=== PATIENT | male | born 1960 ===

== ENCOUNTER 2021-03-01 02:03 | Day surgery (SDC) | payer OTHER, SELFPAY ==
[2021-03-01] VITALS (17 sets, daily range): BP systolic 123–181; BP diastolic 62–85; PULSE 78–91; RESP 16–20; TEMP 36.6–37.4; O2SAT 93–97; BMI 32.8
--- NOTE | ~2021-03-01 | XR_ITS ---
XR chest 2V 03/02/2021 09:05 Indication: 24 hours following pacemaker insertion Procedure: PA and lateral views of the chest Comparison: 03/01/2021 Findings: Right-sided transvenous pacemaker leads in the right atrium and right ventricle respectivel y. Heart size normal. There is left suprahilar atelectasis/scarring. No focal pneumonia, edema, pleur al effusion or pneumothorax. Heart size is normal. No acute osseous abnormality. Impression: 1: Left suprahilar atelectasis/scarring. Reviewed, dictated and finalized at location A. DINGS AND GROUNDS SUPERVISOR Impression: 1: Left suprahilar atelectasis/scarring.
--- NOTE | ~2021-03-01 | XR_ITS ---
XR chest 1V portable DATE: 03/01/2021 14:45 INDICATION: Pacemaker insertion TECHNIQUE: Portable upright AP chest on 03/01/2021 at 1441 hours COMPARISON: None FINDINGS: Right-sided transvenous pacemaker device is noted with leads overlying right atrium and rig ht ventricle. Heart size appears borderline, not optimally evaluated on AP projection because of magnification. The re is pulmonary vascular congestion and redistribution and mild prominence of minor fissure suggestin g subpleural edema. No pleural effusion or pneumothorax is evident. IMPRESSION: Right sided transvenous pacemaker device with right atrial and ventricular leads Mild congestive changes Reviewed, dictated and finalized at location B. AIN CLEANER IMPRESSION: Right sided transvenous pacemaker device with right atrial and vent ricular leads Mild congestive changes
--- NOTE | 2021-03-01 07:00 | ECG_ITS ---
Measurements Intervals [place] Rate: 75 P: 269 OK: 269 QRS: 45 QRSD: 114 T: 50 QT: 379 QTc: 425 Interpretive Statements ECTOPIC ATRIAL RHYTHM WITH FIRST DEGREE AV BLOCK BORDERLINE ST-T WAVE ABNORMALITY- INFERIOR LEADS BASELINE ARTIFACT- I, II, III, AVR, AVL, AVF ABNORMAL ECG Electronically Signed On 03-01-2021 7:50:08 [employer]BL[employer] by Min Henson D.O.
[2021-03-01 07:48] LABS: Anion Gap 12 mmol/L (8-16); Blood Urea Nitrogen 24 mg/dL (9-20); Calcium 10.1 mg/dL (8.4-10.2); Carbon Dioxide 28 mmol/L (22-30); Chloride 101 mmol/L (98-107); Estimated Glomerular Filt Rate > 60; Glucose 198 mg/dL (65-110); Potassium 3.9 mmol/L (3.4-5.0); Sodium 141 mmol/L (137-145)
[2021-03-01 08:07] LABS: Basophils Absolute Auto 0.1 K/mm3 (0.0-0.1); Eosinophils Absolute Auto 0.2 K/mm3 (0-0.3); Eosinophils Percent Auto 2.4 % (0-4.4); Hematocrit 41.5 % (42.0-52.0); Hemoglobin 14.2 g/dL (14.0-18.0); Immature Granulocyte Absolute 0.02 K/mm3 (0.00-0.031); Immature Granulocyte Percent A 0.3 % (0-0.5); Lymphocytes Absolute Auto 1.95 K/mm3 (0.9-3.2); Lymphocytes Percent Auto 24.5 % (18.3-44.2); Mean Corpuscular HGB Conc 34.2 g/dl (32-36); Mean Corpuscular Hemoglobin 30.4 pg (26-34); Mean Corpuscular Volume 88.9 fl (80-100); Mean Platelet Volume 10.9 fl (7.4-10.4); Monocytes Absolute Auto 0.7 K/mm3 (0.1-0.6); Monocytes Percent Auto 8.9 % (2.6-8.5); Neutrophils Percent Auto 62.9 % (45.5-73.1); Platelet Count Result 184 k/mm3 (150-375); Red Blood Count 4.67 M/mm3 (4.6-6.20); Red Cell Distribution Width 12.6 % (11.5-14.5)
[2021-03-01 08:25] LABS: INR 1.2; Prothrombin Time 14.7 Seconds (11.1-14.7)
--- NOTE | 2021-03-01 08:32 | SUR.PREOP ---
DR. WELDON HERE TO BEDSIDE TO SPEAK TO PT. AND DAUGHTER.
--- NOTE | 2021-03-01 08:35 | SUR.PREOP ---
DR. WELDON GIVEN LAB RESULTS AND MADE AWARE THAT PT'S LAST DOSE OF PLAVIX WAS 2020.
--- NOTE | 2021-03-01 08:39 | PM.IMHP ---
H&P: HPI History of Present Illness Date/Time: 03/01/21 08:39 Chief Complaint: Intermittent second-degree AV block, symptomatic, sinus pauses Narrative: Talon Hall is a 60-year-old male with exertional fatigue with intermittent dizziness. His monitoring showed intermittent second-degree AV block type 1 and type 2, and sinus pauses. He also has intermittent tachycardia as, suspected PAF (not documented). He has a history of hypertension, coronary artery calcification, atypical chest pain, and diabetes. He takes aspirin and Plavix for history of stroke, last dose of Plavix was Saturday. He is left handed. No history of any clavicular fracture. No allergies to antibiotics or IV contrast. Accompanied by his daughter Destini today. Review of Systems Review of Systems: Last dose of Plavix was Saturday night Constitutional: Constitutional: Reports fatigue and Reports weakness Eyes: Eyes: Reports no additional eye complaints ENT: Denies epistaxis Cardiovascular: Cardiovascular: Reports chest pain, Reports pedal edema, Reports leg edema, Reports lightheadedness and Reports palpitations Respiratory: Respiratory: Reports dyspnea on exertion Gastrointestinal: Gastrointestinal: Denies abdominal pain Genitourinary: Genitourinary: Denies hematuria Musculoskeletal: Musculoskeletal: Reports no additional musculoskeletal complaints Integumentary/Breasts: Skin/Breast: Denies rash Neurologic: Reports system reviewed and no additional complaints, except as documented Comments: History of stroke Psychiatric: Psychiatric: Reports no additional psychiatric complaints [facility] Past Medical History Medical History (Updated 03/01/21 @ 08:46 by Germaine Chan MD) Coronary artery calcification Diabetes Diabetic neuropathy GERD (gastroesophageal reflux disease) History of stroke Hyperlipidemia Hypertension Nerve entrapment Status post surgery Family History Family History (Updated 03/01/21 @ 08:48 by Germaine Chan MD) Mother Heart disease Father Kidney failure Social History Social History (Updated 03/01/21 @ 08:49 by Germaine Chan MD) Social History: Daughter Roxanne Smoking status: Never smoker Meds Home Medications and Allergies Home Medications Medication Instructions Recorded Confirmed Type aspirin 81 mg PO DAILY 03/01/21 03/01/21 History atorvastatin 20 mg PO DAILY 03/01/21 03/01/21 History clonidine HCl 0.2 mg PO BID 03/01/21 03/01/21 History clopidogrel 75 mg PO DAILY 03/01/21 03/01/21 History folic acid 1 mg PO DAILY 03/01/21 03/01/21 History fosinopril 20 mg PO DAILY 03/01/21 03/01/21 History furosemide 40 mg PO DAILY 03/01/21 03/01/21 History insulin detemir U-100 [Levemir 40 unit SUBCUT ACHS 03/01/21 03/01/21 History FlexTouch U-100 Insuln] lactulose 20 g PO QID 03/01/21 03/01/21 History meloxicam 15 mg PO DAILY 03/01/21 03/01/21 History nifedipine 60 mg PO DAILY 03/01/21 03/01/21 History potassium chloride 20 meq PO DAILY 03/01/21 03/01/21 History pregabalin 150 mg PO BID 03/01/21 03/01/21 History quetiapine 25 mg PO TID 03/01/21 03/01/21 History quetiapine 600 mg PO HS 03/01/21 03/01/21 History Allergies Allergy/AdvReac Type Severity Reaction Status Date / Time amlodipine [From [facility]] AdvReac Chest Pain Verified 03/01/21 07:47 Vital Signs Vital Signs - 24 hr 03/01/21 08:02 Temperature 97.9 F Pulse Rate 78 Respiratory Rate 18 Blood Pressure 151/77 H Pulse Oximetry 97 Exam Narrative: Middle-aged male, accompanied by daughter, apprehensive, no distress Const: General: comfortable and no acute distress HENMT: General nose exam: no epistaxis Other: Missing several teeth Eyes: EOM: EOMs intact bilaterally Neck: Neck: supple Resp: Effort & Inspection: normal respiratory effort Auscultation: clear to auscultation bilaterally Cardio: Rate: regular rate Rhythm: regular rhythm Heart sounds: no murmurs GI: GI Palp: Yes Soft to palpation and No Te
--- NOTE | 2021-03-01 08:51 | WPDMODSED ---
Moderate Sedation Note-Pt Data Patient Data Diagnosis: Symptomatic second-degree AV block type 2 Present Complaint: Reviewed risks of pacemaker implant with patient. These include breathing problems, allergic reactions, bleeding, infection, pneumothorax, cardiac puncture, need for unanticipated surgery, lead dislodgement among others. Procedure to be performed/Plan: Conscious sedation Venogram Insertion of a permanent dual-chamber pacemaker Allergies Allergy/AdvReac Type Severity Reaction Status Date / Time amlodipine [From [facility]] AdvReac Chest Pain Verified 03/01/21 07:47 Home Medications Medication Instructions Recorded Confirmed Type aspirin 81 mg PO DAILY 03/01/21 03/01/21 History atorvastatin 20 mg PO DAILY 03/01/21 03/01/21 History clonidine HCl 0.2 mg PO BID 03/01/21 03/01/21 History clopidogrel 75 mg PO DAILY 03/01/21 03/01/21 History folic acid 1 mg PO DAILY 03/01/21 03/01/21 History fosinopril 20 mg PO DAILY 03/01/21 03/01/21 History furosemide 40 mg PO DAILY 03/01/21 03/01/21 History insulin detemir U-100 [Levemir 40 unit SUBCUT ACHS 03/01/21 03/01/21 History FlexTouch U-100 Insuln] lactulose 20 g PO QID 03/01/21 03/01/21 History meloxicam 15 mg PO DAILY 03/01/21 03/01/21 History nifedipine 60 mg PO DAILY 03/01/21 03/01/21 History potassium chloride 20 meq PO DAILY 03/01/21 03/01/21 History pregabalin 150 mg PO BID 03/01/21 03/01/21 History quetiapine 25 mg PO TID 03/01/21 03/01/21 History quetiapine 600 mg PO HS 03/01/21 03/01/21 History Sedation/Anesthesia: No previous sedation/anesthesia problems (including family history). [facility] Past Medical History Medical History (Updated 03/01/21 @ 08:46 by Germaine Chan MD) Coronary artery calcification Diabetes Diabetic neuropathy GERD (gastroesophageal reflux disease) History of stroke Hyperlipidemia Hypertension Nerve entrapment Status post surgery Family History Family History (Updated 03/01/21 @ 08:48 by Germaine Chan MD) Mother Heart disease Father Kidney failure Social History Social History (Updated 03/01/21 @ 08:49 by Germaine Chan MD) Social History: Daughter Roxanne Smoking status: Never smoker Mod Sed Physical Exam Physical Exam Pre Procedural Exam: Normal: Appearance, Eyes, Ears, Nose, Neck, Airway, Lungs, Heart Size, Heart Rate, Heart Rhythm, Neuro Exam, Abdomen and Skin (Skin over prepectoral area is free of lesion) and Variation: Throat (Missing several teeth) Hours since solid foods: 12 Hours since liquid intake: 12 Mallampati Classification: class III Internal Medicine - PN: Obj Da Vital Signs Vital Signs: Vital Signs - 24 hr 03/01/21 08:02 Temperature 97.9 F Pulse Rate 78 Respiratory Rate 18 Blood Pressure 151/77 H Pulse Oximetry 97 Labs CBC & Chem 7: 03/01/21 07:23 03/01/21 07:23 Labs: Laboratory Results - last 24 hr 03/01/21 03/01/21 03/01/21 07:23 07:23 07:23 WBC 8.0 RBC 4.67 Hgb 14.2 Hct 41.5 L MCV 88.9 MCH 30.4 MCHC 34.2 RDW 12.6 Plt Count 184 MPV 10.9 H Immature Gran % (Auto) 0.3 Neut % (Auto) 62.9 Lymph % (Auto) 24.5 Mccracken % (Auto) 8.9 H Eos % (Auto) 2.4 Baso % (Auto) 1.0 Lymph # (Auto) 1.95 Mccracken # (Auto) 0.7 H Eos # (Auto) 0.2 Baso # (Auto) 0.1 Abs Immat Gran (auto) 0.02 Absolute Neuts (auto) 5.0 Absolute Nucleated RBC 0.0 Nucleated RBC % 0.0 PT 14.7 INR 1.2 Sodium 141 Potassium 3.9 Chloride 101 Carbon Dioxide 28 Anion Gap 12 BUN 24 H Creatinine 0.90 Estim Creat Clear Calc Not Reportable Estimated GFR > 60 Glucose 198 H Calcium 10.1 ASA Classification/Sedation ASA Classification/Sedation ASA Class: III Emergent: No Risks: Risks, benefits and alternatives explained and patient/family accepted plan for sedation. Patient re-evaluated immediately prior to sedation.
--- NOTE | 2021-03-01 13:45 | ECG_ITS ---
Measurements Intervals [place] Rate: 85 P: 71 MO: 159 QRS: -84 QRSD: 183 T: 79 QT: 441 QTc: 526 Interpretive Statements ELECTRONIC VENTRICULAR PACEMAKER NO FURTHER INTERPRETATION IS POSSIBLE ATYPICAL ECG Electronically Signed On 03-01-2021 14:46:11 SPORTS UMPIRE by Min Henson D.O.
--- NOTE | 2021-03-01 13:49 | PM.OP ---
Procedure Note - Brief Procedure Note - Brief Date of procedure: 03/01/21 Pre-op diagnosis: heart Block Post-op diagnosis: same Procedure performed: Conscious sedation new line venogram Placement of a permanent dual-chamber pacemaker Description of procedure: placement of a permanent dual-chamber pacemaker Anesthesia: local ( with conscious sedation) Surgeon: Germaine Chan MD Complications: No immediate complications Condition: stable Disposition: observation Findings: patient had excessive oozing and bleeding from the pocket and sheath sites requiring application of topical thrombin, sutures, extensive cautery, and a pressure dressing.
--- NOTE | 2021-03-01 13:50 | W.PM.PROC2 ---
Procedure Note - Detailed Date of Procedure 03/01/21 Pre-op Diagnosis Symptomatic second-degree AV heart Block Post-op Diagnosis same Procedure Performed PROCEDURE PERFORMED: Conscious sedation Venogram Placement of a permanent dual-chamber pacemaker Surgeon Germaine Chan MD Anesthesia local (With conscious sedation) Indications Symptomatic second-degree AV block Findings Unusual and extensive generalized oozing noted Description of Procedure HISTORY: Talon Hall is a 60-year-old male with exertional fatigue with intermittent dizziness. His monitoring showed intermittent second-degree AV block type 1 and type 2, and sinus pauses. He also has intermittent tachycardia as, suspected PAF (not documented). He has a history of hypertension, coronary artery calcification, atypical chest pain, and diabetes. He takes aspirin and Plavix for history of stroke, last dose of Plavix was Saturday. He is left handed. No history of any clavicular fracture. No allergies to antibiotics or IV contrast. SITE: Left prepectoral area MEDICATIONS GIVEN IN PHOTOGRAPHS CURATOR: Ancef 1 gram IV piggyback Hydralazine 10 mg IV push x2 for hypertension. CONSCIOUS SEDATION: Assessment: The patient has no history of anesthesia problems. The patient's oropharynx is clear. The patient was deemed to be a good candidate for conscious sedation. The patient had continuous hemodynamic monitoring during the procedure. Start time: 0920 Completion time: 1326 Total conscious sedation time: 4 hours 6 minutes Medications: fentanyl 300 mcg, Versed 7 mg IV push Trained observer: Lucy Lockett RN Outcome: The patient tolerated the procedure well with no complications. PROCEDURE: After informed consent , the patient was brought to the farm labor contractor and the left prepectoral area was prepped and draped in usual fashion . The patient received preop antibiotic and conscious sedation . The right prepectoral area was anesthetized with lidocaine. A venogram was performed showing the course of the right subclavian vein, which was patent, though at a sharp bend into the innominant vein. Next a skin incision was made and carried down to the prepectoral fascia. The pacer pocket was formed. Hemostasis was obtained using electrocautery; the patient was noted to ooze more than usual from the incision and pocket. The left subclavian vein was not easily accessed with the micropuncture technique. After a few passes, I elected to attempt venous puncture with the assistance of the vascular ultrasound. The left subclavian/axillary vein was located which was lateral to the incision, and small. IV fluids were provided to increase the size of the vein, which was punctured with the Cook needle and a J-tip guide wire was passed into the right heart under fluoroscopic guidance . The needle was withdrawn . The wire was pulled into the pacing pocket, with again significant oozing from this manipulation. I was unable to puncture the vein is 2nd time with this technique. Using the retained wire technique, A 7 Bahamian Bahamian safety sheath was passed over the wire, and a 2nd wire was passed to the right heart. Using a 6 Bahamian sheath, I was able to manipulate the right ventricular lead into the right ventricular apex. When suitable sensing and pacing thresholds were obtained, it was screwed into place. No extra cardiac stimulation was obtained using 10 volts. The sheath was withdrawn. Next, another 6 Bahamian safety sheath was passed over the 2nd wire, the wire withdrawn, and the right atrial lead was passed into the inferior vena cava under fluoroscopic guidance. Right atrial lead was then pulled back to the level of the right atrium and manipulated into the right atrial appendage . When suitable sensing and pacing thresholds were obtained , it was screwed into place . However the lead need to be repositioned twice. It was difficult to get good sensing in the appendage but we had good sensin
[2021-03-01 14:04] LABS: Hematocrit 36.1 % (42.0-52.0); Hemoglobin 12.5 g/dL (14.0-18.0)
[2021-03-01 14:21] LABS: Glucose Point of Care 212 mg/dl (65-105)
[2021-03-01] MEDS: OXYMETAZOLINE HCL 0.05% NAS 15 ML BTL (*BKC) 1 SPRAY NASAL (14:54)
--- NOTE | 2021-03-01 15:00 | SUR.PHASEII ---
END PHASE II RECOVERY. SEE PCS FOR FURTHER DOCUMENTATION.
--- NOTE | 2021-03-01 15:01 | ADMGEN ---
This patient, Talon Hall, was admitted EXTENDED RECOVERY AFTER OUTPATIENT PERMANENT PACEMAKER. REMAINS IN STRIPER SPRAY GUN 7 AT THIS TIME. WILL TRANFER to Medical Room 249-01 ON TELE WHEN AVAILABLE. Patient/family oriented to hospital policies and general routines including ID bracelet, bed and alarms, visiting hours, pain management, procedures, bathroom and other care routines, personal items, smoking policy, room service/diet, and visiting hours. PREVIOUS CHARTING IN HAYDE TRACKER PHASE II. Information on how to activate the Rapid Response Team has been discussed. Patient/Family are encouraged to report perceived risks to care and to ask questions if they do not understand what they are told or what they should do.
[2021-03-01] MEDS: HYDROcodone/acetaminophen (*CRX) 5-325 MG TABLET 1 TAB PO (15:34)
[2021-03-01] MEDS: FLUTICASONE PROPIONATE 0.05% NA SPR 16 GM BTL (*BKC) 2 SPRAY NASAL (18:13)
[2021-03-01] MEDS: LORATADINE 10 MG TABLET PO (18:14)
[2021-03-01] MEDS: LACTULOSE 20 GM/30 ML UDC PO (18:16)
[2021-03-01] MEDS: PREGABALIN (*CRX) 75 MG CAPSULE 150 MG PO (18:16)
[2021-03-01] MEDS: QUEtiapine FUMARATE 25 MG TABLET PO (18:16)
[2021-03-01] MEDS: cloNIDine HCL 0.2 MG TABLET PO (19:09)
[2021-03-01] MEDS: INSULIN DETEMIR 100 UNITS/ML 40 UNITS SUB-Q (19:52)
--- NOTE | 2021-03-01 20:05 | PC.NURSE ---
REPORT CALLED TO TIM RAMIREZ ON MED TELE.
--- NOTE | 2021-03-01 20:20 | PC.NURSE ---
TRANSFERRED PT. VIA BED ON TELE TO [address] [place] [address] FOR REMAINDER OF EXTENDED RECOVERY STAY AFTER OUTPATIENT PACEMAKER INSERTION. IMMOBILIZER REMAINS ON R. ARM. NO CHANGE IN R. UPPER CHEST WOUND SITE OR EDEMA. DRESSING REMAINS C/D/I. MOVED W/ ALL BELONGINGS, PHONE, PPM BEDSIDE MONITOR AND BOOKLETS. VOICES NO C/O. WILL NOTIFY DAUGHTER, GIAN, OF NEW ROOM NUMBER.
[2021-03-01] MEDS: QUEtiapine FUMARATE 100 MG TABLET 600 MG PO (21:10)
[2021-03-01] MEDS: traMADol HCL (*CRX) 50 MG TABLET 100 MG PO (21:10)
[2021-03-01 21:18] LABS: Glucose Point of Care 249 mg/dl (65-105)
[2021-03-02] VITALS (10 sets, daily range): BP systolic 80–156; BP diastolic 40–88; PULSE 60–94; RESP 18–20; TEMP 36.4–37.1; O2SAT 93–97
[2021-03-02 05:51] LABS: Hematocrit 35.1 % (42.0-52.0)
[2021-03-02 08:09] LABS: Glucose Point of Care 182 mg/dl (65-105)
[2021-03-02] MEDS: lisinopriL 20 MG TABLET PO (08:32)
[2021-03-02] MEDS: FUROSEMIDE 40 MG TABLET PO (08:32)
[2021-03-02] MEDS: LACTULOSE 20 GM/30 ML UDC PO (08:32)
[2021-03-02] MEDS: cloNIDine HCL 0.2 MG TABLET PO (08:32)
[2021-03-02] MEDS: LORATADINE 10 MG TABLET PO (08:32)
[2021-03-02] MEDS: FOLIC ACID 1 MG TABLET PO (08:32)
[2021-03-02] MEDS: FLUTICASONE PROPIONATE 0.05% NA SPR 16 GM BTL (*BKC) 2 SPRAY NASAL (08:32)
[2021-03-02] MEDS: ATORVASTATIN 20 MG TABLET PO (08:32)
[2021-03-02] MEDS: NIFEdipine 30 MG TAB.ER.24 60 MG PO (08:33)
[2021-03-02] MEDS: QUEtiapine FUMARATE 25 MG TABLET PO (08:33)
[2021-03-02] MEDS: POTASSIUM CHLORIDE 20 MEQ PACKET (FOR LIQUID) PO (08:33)
[2021-03-02] MEDS: PREGABALIN (*CRX) 75 MG CAPSULE 150 MG PO (08:33)
[2021-03-02] MEDS: LOSARTAN POTASSIUM 25 MG TABLET PO (08:33)
[2021-03-02] MEDS: INSULIN DETEMIR 100 UNITS/ML 40 UNITS SUB-Q (08:34)
[2021-03-02 10:36] LABS: Glucose Point of Care 219 mg/dl (65-105)
--- NOTE | 2021-03-02 10:44 | PC.NURSE ---
PT C/O WEAKNESS IN CHAIR PUT PT BACK TO BED AND BP 80/[address] WELDON NOTIFIED AND NEW ORDERS RECEIVED.
[2021-03-02 12:00] LABS: Glucose Point of Care 244 mg/dl (65-105)
--- NOTE | 2021-03-02 12:20 | PM.DS ---
DS: Admitting Diagnosis Discharge Date 03/02/2021 Admitting Diagnosis pacemaker insertion for secondary heart block. DS: Discharge Diagnosis Discharge Diagnosis (1) Second degree AV block: Code(s): I44.1 - Atrioventricular block, second degree Status: Acute Assessment and Plan: Patient underwent pacemaker insertion by Dr. Chan. There was significant amount of bleeding. Hemoglobin remained stable. Chest x-ray looked unremarkable. Interrogation of the device was within normal. Patient was not feeling dizzy or lightheaded. He was walking to the bathroom and he was steady on his feet. He tolerated diet. DS: Summary Hospital Course Hospital Course: Patient presented for elective insertion of pacemaker for second-degree heart block. He underwent the procedure successfully however there was significant mode to have bleeding during the procedure and difficulty achieving hemostasis however eventually hemostasis achieved. Today there was no hematoma. He is using a sling. Chest x-ray looked unremarkable. Interrogation of the device looks good. Patient is feeling well. Hemoglobin stable. Time Spent with Patient Time attestation: Total time spent providing and/or coordinating discharge services: 35 minutes Exam Const: General: cooperative, comfortable, no acute distress, alert and awake Nutritional Appearance: well nourished Orientation/consciousness: patient oriented x3 HENMT: Head: normal to inspection, normocephalic and atraumatic Ears: hearing grossly normal bilaterally General nose exam: Normal external nose present, Normal nares present and no nasal discharge noted Face and sinus: normal facial exam and no erythema Mouth: No drooling and No restricted motion Throat: uvula midline Eyes: General: appearance normal, both eyes and all related structures Alignment and Position: position normal Conjunctivae: conjunctivae normal Sclera: sclerae normal Direct Ophthalmoscopy: No photophobia Neck: Neck: normal visual inspection and no JVD Thyroid: thyroid normal Carotids: no bruits Lymphatic: lymphedema not noted Chest: Chest palpation & inspection: normal inspection of the chest, no tenderness and other ( Pacemaker site without hematoma. He is using a sling.) Resp: Effort & Inspection: normal respiratory effort and no nasal flaring Auscultation: clear to auscultation bilaterally, no crackles, no rales and no wheezes Cardio: Jugular venous distension: no JVD Rate: regular rate Rhythm: regular rhythm Heart sounds: S1 normal heart sound present, S2 normal heart sound present, no gallops, no murmurs and no rubs GI: Inspection: non-distended GI Palp: No abdominal tenderness and No Soft to palpation Auscultation: normal bowel sounds Rectal Exam: deferred : General: No no CVA tenderness Back/Spine/Pelvis: Back: No no CVA tenderness Cervical Spine: cervical ROM normal Skin: General skin exam: normal color and rashes and/or lesions noted Neuro: General: patient oriented x3 Cranial nerves: No CN's II-XII intact bilaterally Speech: normal speech Motor exam (neuro): no tremors Extrem: General: normal to inspection and pedal edema present Psych: Appearance: grossly normal and well kempt Speech and movement: Normal speech and movement present Affect: normal affect DS: Data Data Completed and Pending Labs on day of discharge: Labs from last 24 hours 03/02/21 03/02/21 03/02/21 11:41 10:33 08:06 Hgb Hct POC Capillary Glucose 244 H 219 H 182 H 03/02/21 03/01/21 03/01/21 05:01 21:09 14:17 Hgb 12.0 L Hct 35.1 L POC Capillary Glucose 249 H 212 H 03/01/21 13:52 Hgb 12.5 L Hct 36.1 L POC Capillary Glucose Discharge Plan Discharge Patient Disposition: Home, Self-Care Discharge Instructions: [facility]
--- NOTE | 2021-03-02 14:00 | PC.NURSE ---
bp 88/46 pt up in chair and asymptomatic, Dr Madison notified.
== END 2021-03-02 15:10 | disposition home or self-care (01) ==
LOC: ANHCATHLAB 02:13 → ANHCARD 07:41 → ANHCATHLAB 03-19 08:23
PROVIDERS: Visit Provider Internal Medicine Cardiovascular Disease
PROC: 0JH606Z Insertion of Pacemaker, Dual Chamber into Chest Subcutaneous Tissue and Fascia, Open Approach (ICD-10-PCS; CPT 33208; principal; 2021-03-01 08:30)
DX: I44.1 Atrioventricular block, second degree (principal); I10 Essential (primary) hypertension; I25.10 Atherosclerotic heart disease of native coronary artery without angina pectoris; R07.89 Other chest pain; E11.40 Type 2 diabetes mellitus with diabetic neuropathy, unspecified; E78.5 Hyperlipidemia, unspecified; K21.9 Gastro-esophageal reflux disease without esophagitis; Z79.02 Long term (current) use of antithrombotics/antiplatelets; Z79.82 Long term (current) use of aspirin; Z86.73 Personal history of transient ischemic attack (TIA), and cerebral infarction without residual deficits; Z79.4 Long term (current) use of insulin
CPT/HCPCS: 33208; 36415; 71045; 71046; 80048; 82948; 85014; 85018; 85025; 85610; 93005; A9270; C1757; C1779; C1785; J0360; J0690; J1815; J2250; J3010; J3370; J7030; J7040